=== PATIENT | male | born 1980 | race Hispanic/Latino ===

== ENCOUNTER 2024-04-03 09:26 | Emergency (ER) | payer MEDICAID | END 2024-04-03 10:00 | disposition home or self-care (01) | LOC: MADERS 09:26 | DX: S01.512D Laceration without foreign body of oral cavity, subsequent encounter (principal); M54.50 Low back pain, unspecified; F17.210 Nicotine dependence, cigarettes, uncomplicated; W06.XXXD Fall from bed, subsequent encounter | CPT/HCPCS: 99282 ==

== ENCOUNTER 2024-10-03 16:30 | Emergency (ER) | payer MEDICAID, SELFPAY ==
[2024-10-03 17:20] LABS: #Basophils 0.1 thou/uL (0.0-0.2); #Eosinophils 0.3 thou/uL (0.0-0.7); #Monocytes 0.7 thou/uL (0.11-0.59); #Neutrophils 5.3 thou/uL (1.40-6.50); %Basophils 1.4 % (0.0-1.0); %Eosinophils 3.7 % (0.0-10.0); %Lymphocytes 23.8 % (21.0-51.0); %Monocytes 8.8 % (0.0-10.0); %Neutrophils 62.4 % (42.0-75.0); Hemoglobin 13.8 g/dL (14.0-18.0); Mean Corpuscular HGB CONC 31.4 g/dL (32.0-36.0); Mean Corpuscular Hemoglobin 28.2 pg (27.0-31.0); Mean Platelet Volume 10.2 fL (7.4-10.4); Platelet Count 150 10x3/uL (130-400); RBC Distribution Width 17.4 % (11.5-14.5); Red Blood Cell (RBC) Count 4.89 mill/uL (4.70-6.10); White Blood Cell (WBC) Count 8.4 10x3/uL (4.8-10.8)
[2024-10-03] MEDS ORDERED: Ondansetron PF 4 MG/2 ML Vial ONE (17:26)
[2024-10-03] MEDS ORDERED: levETIRAcetam 500 MG (5 mL) VIAL ONE (17:26)
[2024-10-03] MEDS ORDERED: Thiamine HCl 200 MG/2 ML VIAL ONE (17:26)
[2024-10-03] MEDS ORDERED: Aspirin Chewable 81 MG TAB ONE (17:27)
[2024-10-03] MEDS ORDERED: Diazepam 10 MG/2 ML SYRINGE ONE (17:27)
[2024-10-03 17:34] LABS: ALT (SGPT) 87 U/L (8-55); AST (SGOT) 111 U/L (5-34); Alcohol Less than 10.0 mg/dL (Less than 10); Alkaline Phosphatase 162 U/L (40-110); Anion Gap 19 mmol/L (10-20); BUN (Urea Nitrogen) 9 mg/dL (8.9-20.6); Bilirubin, Total 1.9 mg/dL (0.2-1.2); Calc. Creatinine Clearance 0 mL/min (70-130); Calcium 9.3 mg/dL (7.8-10.44); Carbon Dioxide 15 mmol/L (22-29); Chloride 103 mmol/L (98-107); Estimated GFR 115; Globulin 3.8 g/dL (2.4-3.5); Glucose 101 mg/dL (70-105); Magnesium 1.9 mg/dL (1.6-2.6); Potassium 3.7 mmol/L (3.5-5.1); Protein, Total 7.8 g/dL (6.0-8.3); Sodium 133 mmol/L (136-145)
[2024-10-03 17:35] LABS: Troponin I Less than 0.010 ng/mL (< 0.028)
[2024-10-03] MEDS ORDERED: Folic Acid 5 MG/ML MDV ONE (18:33)
[2024-10-03] MEDS ORDERED: Diazepam 5 MG TAB ONE (19:28)
== END 2024-10-03 20:18 | disposition home or self-care (01) ==
LOC: MADERS 16:30
DX: R07.9 Chest pain, unspecified (principal); F10.239 Alcohol dependence with withdrawal, unspecified; F17.210 Nicotine dependence, cigarettes, uncomplicated
CPT/HCPCS: 71045; 80053; 80307; 83735; 84484; 85025; 93005; 94760; 96361; 96374; 96375; J1953; J2405; J3360; J3411

== ENCOUNTER 2024-12-13 16:29 | Emergency (ER) | payer MEDICAID | END 2024-12-13 19:04 | disposition short-term general hospital (02) | LOC: MADERS 16:29 | DX: T76.21XA Adult sexual abuse, suspected, initial encounter (principal); K64.4 Residual hemorrhoidal skin tags; K74.60 Unspecified cirrhosis of liver; R56.9 Unspecified convulsions; F10.20 Alcohol dependence, uncomplicated; F17.210 Nicotine dependence, cigarettes, uncomplicated | CPT/HCPCS: 99285 ==